=== PATIENT | male | born 1980 | race Caucasian/White ===

== ENCOUNTER → 2017-12-11 | Outpatient (CLI) | payer BC ==
--- NOTE | 2017-12-11 15:39 | RAD ---
RADIOGRAPH RIGHT GREAT TOE THREE VIEWS: Date: 12-11-17 History: 37-year-old male S99.921A, injury of toe on right foot, initial encounter. FINDINGS: There are transversely oriented linear lucencies across proximal metaphysis of first distal phalanx, and obliquely oriented lucency across proximal shaft of first distal phalanx. One of the lateral frac ture lucencies extends to the lateral aspect of the first distal interphalangeal joint space. No frac ture of the first proximal phalanx or the first metatarsal head. There are mild to moderate degenerat mayte changes at the first IP and first MTP joints. IMPRESSION: 1. Evidence for acute, traumatic, comminuted, minimally displaced or nondisplaced fracture of first d istal phalanx, including intraarticular extension. 2. 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 POS: [facility]
== END ==
LOC: RAD-BREN 15:46
PROVIDERS: ATTEND Nurse Practitioner Family
DX: S99.921A Unspecified injury of right foot, initial encounter (principal); M19.071 Primary osteoarthritis, right ankle and foot; S92.421A Displaced fracture of distal phalanx of right great toe, initial encounter for closed fracture